=== PATIENT | female | born 1975 | race Caucasian/White ===

== ENCOUNTER → 2017-06-30 16:59 | Outpatient (CLI) | payer OTHER | END | disposition home or self-care (01) | LOC: D.MAMMO 06-18 15:30 | DX: Z12.31 Encounter for screening mammogram for malignant neoplasm of breast (principal) ==

== ENCOUNTER 2017-08-05 08:00 | Outpatient (CLI) | payer OTHER | END 2017-08-05 09:00 | disposition home or self-care (01) | LOC: D.MAMMO 08:00 | DX: R92.8 Other abnormal and inconclusive findings on diagnostic imaging of breast (principal) ==